=== PATIENT | male | born 1970 | race Caucasian/White ===

== ENCOUNTER 2023-12-29 20:38 | Inpatient (IN) | payer MEDICAID ==
[~2023-12-29] VITALS: Ht 182.9 cm; Wt 104.8 kg
[2023-12-29] MEDS ORDERED: ASPIRIN 81 MG TAB.CHEW ONE (20:57)
[2023-12-29] MEDS ORDERED: NITROGLYCERIN OINT 1 GM PACKET TP ONE (20:57)
[2023-12-29] MEDS ORDERED: ASPI81TA31 PO (20:57)
[2023-12-29] MEDS ORDERED: BISO5TAB20 PO (20:57)
[2023-12-29] MEDS ORDERED: ATOR10TA PO (21:02)
[2023-12-29] MEDS: NITROGLYCERIN OINT 1 GM PACKET TP ONE (21:06)
[2023-12-29] MEDS: ASPIRIN 81 MG TAB.CHEW PO ONE (21:06)
[2023-12-29 21:11] LABS: BASOPHILS # (AUTO) 0.1 K/UL (0.0-0.2); BASOPHILS % (AUTO) 0.8 % (0.0-2.0); EOSINOPHILS # (AUTO) 0.1 K/uL (0.0-0.7); EOSINOPHILS % (AUTO) 2.1 % (0.0-7.0); HEMATOCRIT 41.1 % (36.7-47.1); HEMOGLOBIN 14.7 g/dL (12.5-16.3); LYMPHOCYTES # (AUTO) 2.6 K/uL (0.8-4.8); LYMPHOCYTES % (AUTO) 40.5 % (20.5-51.5); MEAN CORPUSCULAR HEMOGLOBIN 30.4 uug (23.8-33.4); MEAN CORPUSCULAR HGB CONC 36 g/dL (32.5-36.3); MEAN CORPUSCULAR VOLUME 85.2 fL (73.0-96.2); MONOCYTES # (AUTO) 0.3 K/uL (0.1-1.30); MONOCYTES % (AUTO) 5.1 % (0.0-11.0); NEUTROPHILS # (AUTO) 3.3 K/uL (1.8-8.9); NEUTROPHILS % (AUTO) 51.5 % (38.5-71.5); PLATELET COUNT (AUTO) 188 K/uL (152-348); RED BLOOD CELL COUNT(AUTO) 4.82 MIL/uL (4.06-5.63); RED CELL DISTRIBUTION WIDTH 13.2 % (12.1-16.2); WHITE BLOOD COUNT (AUTO) 6.5 K/uL (3.6-10.2)
[2023-12-29 21:23] LABS: DIFFERENTIAL COMMENT 1
[2023-12-29 21:29] LABS: CALCIUM 8.6 mg/dL (8.5-10.1); CARBON DIOXIDE 27 mmol/L (21-32); CHLORIDE 110 mmol/L (98-107); GLUCOSE 133 mg/dL (74-106); POTASSIUM 3.7 mmol/L (3.5-5.1); SODIUM SERUM 146 mmol/L (136-145); UREA NITROGEN, BLOOD 17 mg/dL (7-18)
[2023-12-29 21:34] LABS: ALBUMIN 3.6 g/dL (3.4-5.0); BILIRUBIN,DIRECT 0.2 mg/dL (0.0-0.2); BILIRUBIN,TOTAL 1.4 mg/dL (0.2-1.0); TOTAL PROTEIN, SERUM 6.4 g/dL (6.4-8.2)
[2023-12-29 21:45] LABS: *OCCULT BLOOD STOOL POSITIVE (NEGATIVE)
[2023-12-29] MEDS ORDERED: MORPHINE SULFATE 4 MG/1 ML DISP.SYRIN ONE (22:04)
[2023-12-29] MEDS ORDERED: ONDANSETRON 4 MG/2 ML VIAL ONE (22:04)
[2023-12-29] MEDS: MORPHINE SULFATE 4 MG/1 ML DISP.SYRIN IV ONE (22:12)
[2023-12-29] MEDS: ONDANSETRON 4 MG/2 ML VIAL IV ONE (22:12)
[2023-12-30 04:00] VITALS: BP 107/69; TEMP 97.6; O2SAT 95
[2023-12-30] MEDS ORDERED: REMEDY ESSENTIAL ZINC PASTE 113 GM TP PRN (04:00)
[2023-12-30] MEDS ORDERED: ZOLPIDEM 5 MG TABLET PO PRN (04:00)
[2023-12-30] MEDS ORDERED: MAGNESIUM HYDROXIDE 30 ML LIQUID UDC PO PRN (04:00)
[2023-12-30] MEDS ORDERED: ONDANSETRON 4 MG/2 ML VIAL IV PRN (04:00)
[2023-12-30] MEDS ORDERED: ACETAMINOPHEN 325 MG TABLET PO PRN (04:00)
[2023-12-30 07:42] LABS: BASOPHILS % (AUTO) 0.5 % (0.0-2.0); EOSINOPHILS # (AUTO) 0.1 K/uL (0.0-0.7); EOSINOPHILS % (AUTO) 2.2 % (0.0-7.0); HEMATOCRIT 40.8 % (36.7-47.1); HEMOGLOBIN 14.2 g/dL (12.5-16.3); LYMPHOCYTES # (AUTO) 2.2 K/uL (0.8-4.8); LYMPHOCYTES % (AUTO) 38.4 % (20.5-51.5); MEAN CORPUSCULAR HGB CONC 35 g/dL (32.5-36.3); MONOCYTES # (AUTO) 0.3 K/uL (0.1-1.30); MONOCYTES % (AUTO) 5.4 % (0.0-11.0); NEUTROPHILS # (AUTO) 3.1 K/uL (1.8-8.9); NEUTROPHILS % (AUTO) 53.5 % (38.5-71.5); PLATELET COUNT (AUTO) 169 K/uL (152-348); RED BLOOD CELL COUNT(AUTO) 4.74 MIL/uL (4.06-5.63); RED CELL DISTRIBUTION WIDTH 13.2 % (12.1-16.2); WHITE BLOOD COUNT (AUTO) 5.8 K/uL (3.6-10.2)
[2023-12-30 07:51] VITALS: BP 123/80; TEMP 97.6; O2SAT 97
[2023-12-30 08:05] LABS: CALCIUM 8.5 mg/dL (8.5-10.1); CREATININE 1.1 mg/dL (0.6-1.3); MAGNESIUM 2.1 mg/dL (1.8-2.4); POTASSIUM 4.2 mmol/L (3.5-5.1)
[2023-12-30] MEDS: PANTOPRAZOLE SODIUM 40 MG VIAL IV SCH (09:47)
[2023-12-30] MEDS: METOPROLOL SUCCINATE XL 25 MG TAB.SR.24H PO SCH (09:48)
[2023-12-30] MEDS: MORPHINE SULFATE 4 MG/1 ML DISP.SYRIN IV PRN (10:38)
[2023-12-30 11:43] VITALS: BP 115/74; TEMP 97.6; O2SAT 95
[2023-12-30] MEDS: IV D5 1/2 NS 1000 ML 1,000 ML IV PRN (13:59)
[2023-12-30 15:56] VITALS: BP 108/76; TEMP 97.5; O2SAT 100
[2023-12-30] MEDS ORDERED: SWABABLE VALVE TRANSFER SET EA MC ONE (17:15)
[2023-12-30] MEDS ORDERED: IV NORMAL SALINE 250 ML IV ONE (17:15)
[2023-12-30] MEDS ORDERED: IOHEXOL 300MG/ML 100 ML INFUS..BTL ONE (17:15)
[2023-12-30 20:30] VITALS: BP 108/65; TEMP 97.5; O2SAT 94
[2023-12-30] MEDS ORDERED: ATORVASTATIN 40 MG TABLET PO SCH (21:00)
[2023-12-31 00:39] VITALS: BP 114/73; TEMP 97.6; O2SAT 96
[2023-12-31 06:28] LABS: BASOPHILS % (AUTO) 0.4 % (0.0-2.0); EOSINOPHILS # (AUTO) 0.1 K/uL (0.0-0.7); EOSINOPHILS % (AUTO) 2.2 % (0.0-7.0); HEMATOCRIT 42.6 % (36.7-47.1); HEMOGLOBIN 14.6 g/dL (12.5-16.3); LYMPHOCYTES # (AUTO) 2.2 K/uL (0.8-4.8); MEAN CORPUSCULAR HEMOGLOBIN 29.3 uug (23.8-33.4); MEAN CORPUSCULAR HGB CONC 34 g/dL (32.5-36.3); MEAN CORPUSCULAR VOLUME 85.5 fL (73.0-96.2); MONOCYTES # (AUTO) 0.4 K/uL (0.1-1.30); MONOCYTES % (AUTO) 5.9 % (0.0-11.0); NEUTROPHILS # (AUTO) 3.5 K/uL (1.8-8.9); NEUTROPHILS % (AUTO) 56.5 % (38.5-71.5); PLATELET COUNT (AUTO) 185 K/uL (152-348); RED BLOOD CELL COUNT(AUTO) 4.98 MIL/uL (4.06-5.63); RED CELL DISTRIBUTION WIDTH 12.9 % (12.1-16.2); WHITE BLOOD COUNT (AUTO) 6.2 K/uL (3.6-10.2)
[2023-12-31 08:00] VITALS: BP 133/86; TEMP 97.6; O2SAT 97
[2023-12-31 08:05] LABS: DIFFERENTIAL COMMENT 1
[2023-12-31 08:38] LABS: CALCIUM 8.6 mg/dL (8.5-10.1); CREATININE 1.1 mg/dL (0.6-1.3); POTASSIUM 4.1 mmol/L (3.5-5.1)
[2023-12-31] MEDS: HYDROCORTISONE RECTAL SUPP 25 MG EACH RC SCH (11:38)
[2023-12-31 12:00] VITALS: BP 128/78; TEMP 97.6; O2SAT 98
[2023-12-31] MEDS ORDERED: HYDR25SU13 RC (13:12)
[2023-12-31 16:11] VITALS: BP 96/66; TEMP 92.7; O2SAT 100
== END 2023-12-31 14:45 | disposition home or self-care (01) | DRG 254 ==
LOC: ER 20:40 → TELE3 12-30 01:53 → MEDSURG3 12-31 09:49
PROVIDERS: ADMIT Nurse Practitioner Acute Care; ATTEND Internal Medicine
DX: K64.9 Unspecified hemorrhoids (principal); E87.1 Hypo-osmolality and hyponatremia; R16.2 Hepatomegaly with splenomegaly, not elsewhere classified; E78.5 Hyperlipidemia, unspecified; I25.2 Old myocardial infarction; R00.1 Bradycardia, unspecified; K63.9 Disease of intestine, unspecified; R53.1 Weakness; I25.5 Ischemic cardiomyopathy; E66.9 Obesity, unspecified; Z68.31 Body mass index [BMI] 31.0-31.9, adult; I10 Essential (primary) hypertension; E80.6 Other disorders of bilirubin metabolism; Z79.82 Long term (current) use of aspirin; Z95.810 Presence of automatic (implantable) cardiac defibrillator; Z79.899 Other long term (current) drug therapy; Z90.49 Acquired absence of other specified parts of digestive tract; I70.0 Atherosclerosis of aorta; K62.89 Other specified diseases of anus and rectum; R07.9 Chest pain, unspecified
CPT/HCPCS: 36415; 71045; 82378; 83735; 84100; 84484; 85025; 93005; 93307; C9113; G0378; J2270; J2405; Q9967